=== PATIENT | female | born 1990 | race African-American/Black ===

== ENCOUNTER 2016-06-24 18:12 | Emergency (ER) | payer OTHER ==
[2016-06-24 18:17] VITALS: BP 113/67; PULSE 86; TEMP 98.5; BMI 24.6
== END 2016-06-24 20:04 | disposition left against medical advice (07) ==
LOC: JER 18:12
DX: Z53.21 Procedure and treatment not carried out due to patient leaving prior to being seen by health care provider (principal)
CPT/HCPCS: 99281-25

== ENCOUNTER 2016-06-26 20:52 | Emergency (ER) | payer OTHER ==
[2016-06-26 21:07] VITALS: BP 107/56; PULSE 67; TEMP 98.1; BMI 24.6
--- NOTE | 2016-06-26 22:07 | PDOC ---
History of Present Illness - General History Source: Patient Exam Limitations: No Limitations - History of Present Illness Initial Comments: 06/26/16 22:22 The patient is a 26 year old female , 9 week , with past medical history of asthma and cigarette smoking who presents to the ED with complaints of vaginal itching and pain that began 3 days ago. 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 She reports that this is the second occurrence of symptoms within the past 5 weeks. She also reports some vaginal bleeding as well, that has been on and off for the past week and has become more red in color. She denies any recent illness, fevers, or chills. She denies any nausea, vomiting, diarrhea. She denies any other urinary symptoms. PCP: Kevin Cheema labeler: Dr. Kimmy Shen <Danielle Velez - Last Filed: 06/26/16 23:57> - General History Source: Patient Exam Limitations: No Limitations <Jf Pugh - Last Filed: 06/29/16 08:39> - General Chief Complaint: Vaginal Sxs Stated Complaint: 9WKS/VAGINAL BLEEDING/DISCOMFORT Time Seen by Provider: 06/26/16 21:18 Past History <Danielle Velez - Last Filed: 06/26/16 23:57> - Past Medical History Asthma: No Cancer: No Cardiac Disorders: Yes (MURMUR) Diabetes: No HTN: No Seizures: No Thyroid Disease: No Other medical history: HERPES 2 - Reproductive History (#): 2 Para: 1 - Immunization History Immunization Up to Date: Yes - Psycho/Social/Smoking Cessation Hx Anxiety: No Suicidal Ideation: No Smoking Status: Yes Smoking History: Current every day smoker Have you smoked in the past 12 months: Yes Number of Cigarettes Smoked Daily: 7 Cigars Per Day: 0 Information on smoking cessation initiated: No 'Breaking Loose' booklet given: 06/24/16 Hx Alcohol Use: No Drug/Substance Use Hx: No Substance Use Type: None Hx Substance Use Treatment: No <Jf Pugh - Last Filed: 06/29/16 08:39> - Past Medical History Allergies/Adverse Reactions: Allergies Allergy/AdvReac Type Severity Reaction Status Date / Time No Known Allergies Allergy Verified 06/26/16 21:01 Home Medications: Ambulatory Orders Pnv95/Ferrous Fumarate/FA [ Caplet] 1 each PO DAILY 06/26/16 Cephalexin [Keflex] 500 mg PO BID #14 capsule 06/27/16 Clotrimazole [Clotrimazole-7] 45 gm VG DAILY #1 cream.appl 06/27/16 Review of Systems - Review of Systems Able to Perform ROS?: Yes Comments:: 06/26/16 22:23 GENERAL/CONSTITUTIONAL: No fever or chills. No weakness. HEAD, EYES, EARS, NOSE AND THROAT: No change in vision. No ear pain or discharge. No sore throat CARDIOVASCULAR: No chest pain or shortness of breath. RESPIRATORY: No cough, wheezing, or hemoptysis. GASTROINTESTINAL: No nausea, vomiting, diarrhea or constipation. GENITOURINARY: Present: vaginal itching, vaginal pain, vaginal bleeding No dysuria, frequency, or change in urination. MUSCULOSKELETAL: No joint or muscle swelling or pain. No neck or back pain. SKIN: No rash NEUROLOGIC: No headache, vertigo, loss of consciousness, or change in strength/ sensation. ENDOCRINE: No increased thirst. No abnormal weight change. HEMATOLOGIC/LYMPHATIC: No anemia, easy bleeding, or history of blood clots. ALLERGIC/IMMUNOLOGIC: No hives or skin allergy. All Other Systems: Reviewed and Negative <Danielle Velez - Last Filed: 06/26/16 23:57> *Physical Exam - Vital Signs Last Vital Signs Temp Pulse Resp BP Pulse Ox 98.1 F 67 14 107/56 100 06/26/16 21:02 06/26/16 21:02 06/26/16 21:02 06/26/16 21:02 06/26/16 21:02 - Physical Exam Comments: 06/26/16 22:23 GENERAL: Awake, alert, and fully oriented, in no acute distress HEAD: No signs of trauma EYES: PERRLA, EOMI, sclera anicteric, conjunctiva clear ENT: Auricles normal inspection, hearing grossly normal, nares patent, oropharynx clear without exudates. Moist mucosa NECK: Normal ROM, supple, no lymphadenopathy, JVD, or masses LUNGS: Breath sounds equal, clear to auscultation bilaterally. No wheezes, and no crackles HEART: Regular rate and rhythm, normal S1 and S2, no murmurs, rubs or gallops ABDOMEN: Soft, nontender, normoactive bowel sounds. No guarding, no rebound. No masses PELVIC EXAM: No CMT, andnexal tenderness, no blood in vaginal vault, Cottage cheese discharge, Oss is closed EXTREMITIES: Normal range of motion, no edema. No clubbing or cyanosis. No cords, erythema, or tenderness NEUROLOGICAL: Cranial nerves II through XII grossly intact. Normal speech, normal gait <Danielle Velez - Last Filed: 06/26/16 23:57> - Vital Signs Last Vital Signs Temp Pulse Resp BP Pulse Ox 98.1 F 67 14 107/56 100 06/26/16 21:02 06/26/16 21:02 06/26/16 21:02 06/26/16 21:02 06/26/16 21:02 - Physical Exam Comments: 06/29/16 08:38 Vaginal Exam: no rash or vesicular lesion. <Jf Pugh - Last Filed: 06/29/16 08:39> ED Treatment Course - LABORATORY CBC & Chemistry Diagram: 06/26/16 22:00 - RADIOLOGY Radiograph Interpretation: 06/26/16 23:57 Transvaginal ultrasound as reviewed by Dr. Kearney reports single viable gestation at approximately 6 weeks and 3 days. No definite sonographic abnormality identified. <jeetDanielle - Last Filed: 06/26/16 23:57> - LABORATORY CBC & Chemistry Diagram: 06/26/16 22:00 - RADIOLOGY Radiology Studies Ordered: Category Date Time Status TRANSVAGINAL US PREG [US] Stat Ultrasound 06/26/16 21:46 Ordered <Jf Pugh - Last Filed: 06/29/16 08:39> Medical Decision Making - Medical Decision Making 06/26/16 22:06 A portion of this note was documented by scribe services under my direction. I have reviewed the details of the note, within reason, and agree with the documentation with the following case summary and management plan written by me. Patient treated in the ED. Nursing notes are reviewed and incorporated into the medical decision-making. Vital signs reviewed. Peripheral IV access obtained by the nurse, laboratory studies are drawn and sent, reviewed and interpreted by myself. Vital Signs Temp Pulse Resp BP Pulse Ox 98.1 F 67 14 107/56 100 06/26/16 21:02 06/26/16 21:02 06/26/16 21:02 06/26/16 21:02 06/26/16 21:02 26-year-old female with past medical history of herpes, currently 9 weeks presents with vaginal spotting for 5 days and for 2 days of vaginal yeast discharge. Patient has had noticed some spotting but denies any abdominal pain. Denies nausea or vomiting. Had noted whitish cottage discharge. She has multiple history of vaginal yeast infections. The patient will certainly has a yeast infection. We'll prescribe topical antifungals intravaginally. We'll also need a first trimester vaginal workup including rule out ectopic . We'll obtain labs, blood type, and transvaginal ultrasound and reassess. 06/27/16 00:04 CBC, BMP 06/26/16 22:00 CMP Beta HCG, Quant 17702.3 mIU/ml 06/26/16 22:00 Prior type and screen show blood type as A positive. Ultrasound reviewed. Single viable intrauterine gestation at approx 6 weeks and 3 days. FHR 121. UA positive for infection. At this time, the patient is stable. The patient has not been having further bleeding. I instructed the patient that she will need clotrimazole topically for 7 days as well as keflex. Will have the patient follow up with her senior financial reporting analyst. I discussed the physical exam findings, ancillary test results and final diagnoses with the patient. I answered all of the patient's questions. The patient was satisfied with the care received and felt comfortable with the discharge plan and treatment plan. The patient will call their primary care physician within 24 hours to arrange follow-up and will return to the Emergency Department with any new, persistant or worsening symptoms. <Jf Pugh - Last Filed: 06/29/16 08:39> *DC/Admit/Observation/Transfer - Attestations Scribe Attestion: 06/26/16 22:28 Documentation prepared by Danielle Velez, acting as medical director of hospice for Jf Pugh MD. <Danielle Velez - Last Filed: 06/26/16 23:57> - Discharge Dispostion Admit: No <Jf Pugh - Last Filed: 06/29/16 08:39> Diagnosis at time of Disposition: Vaginal discharge, Vaginal yeast infection, Vaginal bleeding before 22 weeks gestation Urinary tract infection Qualifiers: Urinary tract infection type: site unspecified Hematuria presence: without hematuria Qualified Code(s): N39.0 - Urinary tract infection, site not specified - Discharge Dispostion Disposition: HOME Condition at time of disposition: Stable - Prescriptions Prescriptions: Clotrimazole [Clotrimazole-7] 45 gm VG DAILY #1 cream.appl Cephalexin [Keflex] 500 mg PO BID #14 capsule - Referrals Referrals: Kevin Cheema [Primary Care Provider] - - Patient Instructions Printed Discharge Instructions: DI for Urinary Tract Infection (UTI), DI for Vaginal Yeast Infection, DI for Vaginal Bleeding During Additional Instructions: Your ultrasound and blood work is unremarkable. However, you have a urinary tract infection and a yeast infection. Please take the antifungal cream daily for 7 days. Please take the keflx (antibiotic) every 12 hours for the next 7 days for a urine infection. If you start to notice worsening vaginal bleed, please return to the ER for further evaluation. Follow up with your primary care physician.
[2016-06-26 22:23] LABS: BASOPHIL 0.7 % (0-2.0); EOSINOPHIL 0.8 % (0-4.5); MCH 32.7 pg (25.7-33.7); MCHC 33.7 g/dl (32.0-36.0); MEAN CELL VOLUME 97.2 fl (80-96); MEAN PLT VOLUME 7.9 fl (7.5-11.1); NEUTROPHILS 45.6 % (42.8-82.8); PLATELET COUNT 207 K/MM3 (134-434); RDW 12.6 % (11.6-15.6); WHITE BLOOD COUNT 5.4 K/mm3 (4.0-10.0)
[2016-06-26 22:35] LABS: URINE APPEARANCE CLOUDY; URINE BILIRUBIN NEGATIVE (NEGATIVE); URINE COLOR YELLOW; URINE GLUCOSE (UA) NEGATIVE (NEGATIVE); URINE KETONE NEGATIVE (NEGATIVE); URINE NITRITE NEGATIVE (NEGATIVE); URINE UROBILINOGEN NEGATIVE E.U./dl (0.2-1.0)
[2016-06-26 22:41] LABS: URINE BLOOD 1+ (NEGATIVE); URINE LEUK ESTERASE 3+ (NEGATIVE); URINE PROTEIN 2+ (NEGATIVE)
[2016-06-26 22:55] LABS: URINE BACTERIA RARE /hpf (NONE SEEN); URINE MUCUS FEW; URINE RBC 38 /hpf (0-3); URINE WBC 69 /hpf (3-5)
[2016-06-26] MEDS ORDERED: CEPHALEXIN MONOHYDRATE 500 MG CAPSULE (UD) PO ONE (23:59)
[2016-06-27] MEDS ORDERED: CEPHALEXIN MONOHYDRATE 250 MG CAPSULE (FP) ONE (00:04)
[2016-06-28 14:07] LABS: HIV 1 & 2 AB NEGATIVE; HIV 1 AGp24 NEGATIVE
== END 2016-06-27 00:12 | disposition home or self-care (01) ==
LOC: JER 20:52
DX: O23.31 Infections of other parts of urinary tract in pregnancy, first trimester (principal); O98.811 Other maternal infectious and parasitic diseases complicating pregnancy, first trimester; B37.3 Candidiasis of vulva and vagina; O46.91 Antepartum hemorrhage, unspecified, first trimester; Z3A.01 Less than 8 weeks gestation of pregnancy
CPT/HCPCS: 36415; 76817-TC; 81003; 81015; 84702; 85025; 86850; 86900; 86901; 87086; 87389; 87491; 87591; 99283-25

== ENCOUNTER 2017-01-27 19:40 | Inpatient (IN) | payer OTHER ==
[2017-01-27] MEDS ORDERED: WITCH HAZEL 50% (TUCKS) 40 PAD/JAR PAD TP PRN (20:05)
[2017-01-27] MEDS ORDERED: BISACODYL 10 MG SUPP.RECT RC PRN (20:05)
[2017-01-27] MEDS ORDERED: METHYLERGONOVINE MALEATE 0.2 MG/1 ML AMP IM PRN (20:05)
[2017-01-27] MEDS ORDERED: BENZOCAINE 20% 57 GM BOTTLE TP PRN (20:05)
[2017-01-27] MEDS ORDERED: BENZOCAINE 28 GM HEMORRHOIDAL OINTMENT TP PRN (20:05)
--- NOTE | 2017-01-27 20:11 | PN ---
Delivery - Delivery Vaginal Delivery: No Problems Type of Anesthesia: None Episiotomy/Laceration: None EBL (cc): 300 Delivery, Single - Stages of Labor Date of Delivery: 01/27/17 Time of Delivery: 19:51 Date Placenta Delivered: 01/27/17 Time Placenta Delivered: 19:55 Placenta: Yes: Spontaneous - Condition of Mission Assessment Specialist/Utility Bag Assembler Present: No Gender: Female Position: Right, OA - 1 Minute Total Score: 9 5 Minutes Total Score: 9 Remarks - Remarks Remarks: Uncomplicated of baby girl from ROBBY position across intact perineum tight nuchal cord noted, baby spontaneously delivered through cord which was then clamped and cut anterior shoulder (left) delivered with ease along with remainder of mouth and nose bulb suctioned Apgars 9/9 no perineal/vaginal laceration noted sponge count correct after delivery 10u of IM Pitocin injected into right thigh after delivery lochia moderate and stable mom stable baby to well baby nursery
[2017-01-27] MEDS ORDERED: OXYTOCIN 20 UNITS in 0.9% NS 1,000 ML IV SCH (20:15)
--- NOTE | 2017-01-27 20:16 | HP ---
Past Medical History - Admission Chief Complaint: 26 y/o with SIUP at 37.3 here with complaints of painful contractions and vaginal pressure. History of Present Illness: complicated by elevated T21 risk on NIPS, cystic hygroma noted on early ultrasounds. Pt declined diagnostic testing/amnio. H/o HSV 2- has been on valtrex suppression. +Trichomonas on 3rd trimester vaginal cultures, treated orally and partner treated as well. Mom with anemia. History Source: Patient, Medical Record Limitations to Obtaining History: No Limitations - Past Medical History Cardiovascular: No: HTN Pulmonary: No: Asthma, COPD Gastrointestinal: No: GERD ...: 4 ...Para: 2 ...Term: 2 ... Weeks Gestation by Dates: 37.3 Heme/Onc: Yes: Anemia Infectious Disease: Yes: STD's (+Trichomonas diagnosed at 35 weeks - patient and partner treated). No: HIV, MRSA Psych: Yes: Bipolar (no meds) Endocrine: No: Diabetes Mellitus, Hyperthyroidism - Past Surgical History Hx Myomectomy: No Hx Transabdominal Cerclage: No - Smoking History Smoking history: Current every day smoker Have you smoked in the past 12 months: Yes Aproximately how many cigarettes per day: 7 - Alcohol/Substance Use Hx Alcohol Use: No Home Medications - Allergies Allergies/Adverse Reactions: Allergies Allergy/AdvReac Type Severity Reaction Status Date / Time No Known Allergies Allergy Verified 06/26/16 21:01 - Home Medications Home Medications: Ambulatory Orders Pnv95/Iron Fum/Folic Acid [ Caplet] 1 each PO DAILY 06/26/16 Cephalexin [Keflex] 500 mg PO BID #14 capsule 06/27/16 Clotrimazole [Clotrimazole-7] 45 gm VG DAILY #1 cream.appl 06/27/16 Review of Systems - Review of Systems Constitutional: reports: No Symptoms Eyes: reports: No Symptoms HENT: reports: No Symptoms Neck: reports: No Symptoms Cardiovascular: reports: No Symptoms Respiratory: reports: No Symptoms Gastrointestinal: reports: No Symptoms Genitourinary: reports: No Symptoms Breasts: reports: No Symptoms Reported Musculoskeletal: reports: No Symptoms Integumentary: reports: No Symptoms Neurological: reports: No Symptoms Endocrine: reports: No Symptoms Hematology/Lymphatic: reports: No Symptoms Psychiatric: reports: No Symptoms Physical Exam - Maternity Constitutional: Yes: Well Nourished, No Distress, Calm Eyes: Yes: EOM Intact Cardiovascular: No: Regular Rate and Rhythm - Abdominal Exam/OB Number of Fetuses: Single Presentation: Vertex Contractions: Yes Regularity: Regular Intensity: Strong - Vaginal Exam/OB Vaginal Bleediing: No Dilatation (cm): 10 Effacement (%): 100 Amniotic Membrane Status: Bulging Presentation: Vertex/Position Station: +1 - Physical Exam Psychiatric: Yes: Alert, Oriented Hemorrhage Risk Assessment - Risk Factors Medium Risk Factors: Yes: None High Risk Factors: Yes: None Risk Score: 1 Risk Level: Medium Risk Problem List - Problems (1) Active labor at term Code(s): [id number] - (2) Herpes simplex infection during in third trimester Code(s): O98.513 - OTHER VIRAL DISEASES COMPLICATING , THIRD TRIMESTER B00.9 - HERPESVIRAL INFECTION, UNSPECIFIED Assessment/Plan 26 y/o with SIUP at 37.3 weeks, in active labor, fully dilated - FHTs cat 1 - fully dilated with desire to push - to begin pushing - GBS negative - h/o HSV 2- on suppression - no current lesions noted on exam - anticipate
[2017-01-27 21:01] LABS: BASOPHIL 0.2 % (0-2.0); EOSINOPHIL 0.1 % (0-4.5); MCH 33.3 pg (25.7-33.7); MCHC 33.8 g/dl (32.0-36.0); MEAN CELL VOLUME 98.7 fl (80-96); MEAN PLT VOLUME 9.4 fl (7.5-11.1); NEUTROPHILS 82.2 % (42.8-82.8); PLATELET COUNT 182 K/MM3 (134-434); RDW 13.3 % (11.6-15.6); WHITE BLOOD COUNT 7.1 K/mm3 (4.0-10.0)
[2017-01-27 21:23] LABS: INR 1.09 (0.82-1.09)
[2017-01-27 21:27] LABS: ACTIVATED PTT 26.7 SECONDS (26.9-34.4); ANION GAP 11 (8-16); CALCIUM 9.2 mg/dL (8.5-10.1); CO2 23 mmol/L (21-32); CREATININE 0.7 mg/dL (0.55-1.02); GLUCOSE,RANDOM 84 mg/dL (74-106)
[2017-01-27 21:31] VITALS: BMI 29.0
[2017-01-27] MEDS ORDERED: OXYTOCIN 10 UNITS/ML VIAL IM ONE (22:07)
[2017-01-28] MEDS: ACETAMINOPHEN 325 MG TABLET (FP) PO PRN ×4 (00:02→21:39)
[2017-01-28] MEDS: IBUPROFEN 600 MG TABLET (FP) PO PRN ×4 (00:02→21:39)
--- NOTE | 2017-01-28 07:42 | PN ---
Post Progress Note - Subjective Subjective: Pt feeling well, no complaints. Denies any pain. Bleeding minimal. Denies CP /SOB/F/C/CROOK. Tolerating regular diet, voiding, ambulating. Type of Delivery: Vital Signs: Vital Signs Temperature 98.4 F 01/28/17 05:38 Pulse Rate 64 01/28/17 05:38 Respiratory Rate 20 01/28/17 05:38 Blood Pressure 124/84 01/28/17 05:38 O2 Sat by Pulse Oximetry (%) Uterus: Yes: Fundus Firm, Fundus below umbilicus Abdomen/GI: Yes: Abdomen soft, Passing flatus, Tolerating PO. No: Tender Lochia: Yes: Rubra Lochia, amount: Small Extremities: Yes: Calves non-tender. No: Edema Perineum: Yes: Intact Activity: Ambulating - Labs Labs: CBC WBC 7.1 K/mm3 (4.0-10.0) D 01/27/17 20:40 RBC 3.31 M/mm3 (3.60-5.2) L 01/27/17 20:40 Hgb 11.0 GM/dL (10.7-15.3) 01/27/17 20:40 Hct 32.7 % (32.4-45.2) 01/27/17 20:40 MCV 98.7 fl (80-96) H 01/27/17 20:40 MCH 33.3 pg (25.7-33.7) 01/27/17 20:40 MCHC 33.8 g/dl (32.0-36.0) 01/27/17 20:40 RDW 13.3 % (11.6-15.6) 01/27/17 20:40 Plt Count 182 K/MM3 (134-434) 01/27/17 20:40 MPV 9.4 fl (7.5-11.1) D 01/27/17 20:40 Neutrophils % 82.2 % (42.8-82.8) D 01/27/17 20:40 Lymphocytes % 11.4 % (8-40) D 01/27/17 20:40 Monocytes % 6.1 % (3.8-10.2) 01/27/17 20:40 Eosinophils % 0.1 % (0-4.5) D 01/27/17 20:40 Basophils % 0.2 % (0-2.0) 01/27/17 20:40 Problem List - Problems (1) Active labor at term Code(s): MMA9822 - (2) Herpes simplex infection during in third trimester Code(s): O98.513 - OTHER VIRAL DISEASES COMPLICATING , THIRD TRIMESTER B00.9 - HERPESVIRAL INFECTION, UNSPECIFIED (3) Status post normal vaginal delivery Code(s): RDT4226 - (4) (normal spontaneous vaginal delivery) Code(s): O80 - ENCOUNTER FOR FULL-TERM UNCOMPLICATED DELIVERY Assessment/Plan 26 y/o PPD#1 s/p normal - AFVSS - CBC Pending this a.m. - regular diet, PO pain meds, routine care - h/o bipolar d/o - will have psych consult before discharge
[2017-01-28 08:40] LABS: BASOPHIL 0.2 % (0-2.0); EOSINOPHIL 0.3 % (0-4.5); MCH 32.9 pg (25.7-33.7); MCHC 33.8 g/dl (32.0-36.0); MEAN CELL VOLUME 97.4 fl (80-96); MEAN PLT VOLUME 8.9 fl (7.5-11.1); NEUTROPHILS 73.7 % (42.8-82.8); PLATELET COUNT 176 K/MM3 (134-434); WHITE BLOOD COUNT 9.3 K/mm3 (4.0-10.0)
[2017-01-28] MEDS: PRENATAL VITAMINS W/ FOLIC ACID TABLET (FP) PO SCH (09:36)
[2017-01-28 20:12] VITALS: BP 125/76
[2017-01-28] MEDS ORDERED: SENNOSIDES/DOCUSATE COMBO (SENNA PLUS) TABLET (UD) PO PRN (22:00)
--- NOTE | 2017-01-29 08:36 | DS ---
Physical Exam-HOME CARE COORDINATOR Vital Signs: Vital Signs Temperature 98.0 F 01/28/17 20:12 Pulse Rate 64 01/28/17 20:12 Respiratory Rate 20 01/28/17 20:12 Blood Pressure 125/76 01/28/17 20:12 O2 Sat by Pulse Oximetry (%) Labs: CBC, BMP 01/28/17 07:30 01/27/17 20:40 Delivery - Delivery Vaginal Delivery: No Problems Type of Anesthesia: None Episiotomy/Laceration: None EBL (cc): 300 Delivery, Single - Stages of Labor Date 1st Stage Initiatied: 01/27/17 Time 1st Stage Initiated: 18:30 Date 2nd Stage Initiated: 01/27/17 Time 2nd Stage Initiated: 19:49 Date of Delivery: 01/27/17 Time of Delivery: 19:51 Time Placenta Delivered: 19:55 Placenta: Yes: Spontaneous - Condition of Infant Teaseler/Health Care Assistant Present: No Infant Gender: Female Weight: 5 lb 9 oz Position: Right, OA Total Hours ROM (Hrs/Mins): 7m - 1 Minute Total Score: 9 5 Minutes Total Score: 9 - [place] Feeding Plan Initial Plan: Elected not to breastfeed exclusively throughout hospitalization Discharge Summary Reason For Visit: LABOR Current Active Problems Active labor at term (Acute) Herpes simplex infection during in third trimester (Acute) (normal spontaneous vaginal delivery) (Acute) Status post normal vaginal delivery (Acute) Procedures: Principal: Normal Hospital Course: Uncomplicated post course. Condition: Good - Instructions Diet, Activity, Other Instructions: Physical activity Resume your normal everyday activity as tolerated but no heavy lifting or strenuous exercise until seen by your doctor. You may walk unlimited amounts and climb stairs. You may resume driving the car when you feel safe and comfortable behind the wheel. No sexual activity as instructed for 6 weeks. You may shower daily - no soaking in tubs/baths/pools until cleared by your doctor. Diet There are no dietary restrictions. Eat healthy, high-fiber foods. Drink 6 to 8 glasses of liquid each day. This will assist in keeping your bowels regular. Pain management You may take Tylenol or Ibuprofen (for example, Motrin, Advil etc.) over the counter as needed for pain. Make a follow up appointment in the office for 6 weeks from discharge. Call for any of the following: Severe pain not relieved by medication Fever of 101 or higher Excessive bleeding or drainage on dressing Inability to urinate Referrals: Joann Ascencio DO [Staff Physician] - (6 weeks) Disposition: HOME - Home Medications Comprehensive Discharge Medication List: Ambulatory Orders Pnv95/Iron Fum/Folic Acid [ Caplet] 1 each PO DAILY 06/26/16 Acyclovir [Zovirax] 200 mg PO TID 01/27/17
[2017-01-29 09:00] VITALS: PULSE 72; TEMP 99.1
[2017-01-29] MEDS: ACETAMINOPHEN 325 MG TABLET (FP) PO PRN (09:50)
[2017-01-29] MEDS: PRENATAL VITAMINS W/ FOLIC ACID TABLET (FP) PO SCH (09:50)
[2017-01-29] MEDS: IBUPROFEN 600 MG TABLET (FP) PO PRN (09:50)
--- NOTE | 2017-01-29 12:24 | CON.PSY ---
Psychiatry Consult Chief Complaint: Asked to see this patient, a 26 year old female with hx of bipolar depression History of Present Problem: Patient is 26 year old and is here after a normal vaginal delivery of girl. She has a hx of psychiatrist hospitalization when she was 24 year old after a break up with her then boyfriend. According to her, she became very depressed and was admitted for Depression. Length of stay was 6 days and she was placed on Celexa and abilfy. She states that she took these medications x 1 weeks and stopped. After that she went on the have another baby without any mental health issues post , This is her 3 child. Since the hospitalization at 24 year of age, she reports that she has been mentally stable and has not sought psychiatric care. Symptoms: denies: Depressed Mood, Anhedonia, Worthlessness/Guilt, Decreased Energy, Suicidality, Self destructive thoughts, Appetite Disturbance, Weight change, Hopelessness, Sleep Disturbance, Diurnal Mood Changes, Impaired Concentration, Decreased Motivation, Memory Impairment, Irritability, Expansive / Elevated Mood, Grandiosity, Hyper-religiosity, Excessive Energy, Racing Thoughts, Anxiety, Panic Attacks, Obsessive Thoughts, Flashbacks, Compulsive Behaviors, Agoraphobia, Restlessness, Phobias, Bulimic Behavior, Anorexic Behavior, Somatic Symptoms, Sexual Dysfunction, Inability to Control Temper, Aggressivity, Impulsivity, Depersonalization, Derealization, Amnesic Episodes, Disorganized/Disruptive Thoughts, Delusions, Hallucinations, Paranoia, Conduct Problems, Oppositionalism, Attention Deficit, Learning Problems, Firesetting, Enuresis, Lying, Hyperactivity, Other - Previous Psychiatric Treatment Outpatient: None Inpatient: None - Previous Substance Abuse Treatment Inpatient: None - Current Medications Current Medications: Active Medications Acetaminophen (Tylenol -) 650 mg PO Q3H PRN PRN Reason: PAIN Last Admin: 01/29/17 09:50 Dose: 650 mg Benzocaine (Americaine Ointment -) 1 applic TP PRN PRN PRN Reason: PAIN Benzocaine (Americaine 20% [place] -) 1 spray TP PRN PRN PRN Reason: PAIN Bisacodyl (Dulcolax Suppository -) 10 mg RC PRN PRN PRN Reason: CONSTIPATION Ibuprofen (Motrin -) 600 mg PO Q4H PRN PRN Reason: PAIN Last Admin: 01/29/17 09:50 Dose: 600 mg Methylergonovine Maleate (Methergine Injection -) 0.2 mg IM Q4H PRN PRN Reason: EXCESSIVE BLEEDING (L&D) Multivit/Folic Acid/Iron ( Vitamins (Sjr) -) 1 tab PO DAILY GRACIELA Last Admin: 01/29/17 09:50 Dose: 1 tab Senna/Docusate Sodium (Pericolace -) 2 tablet PO HS PRN PRN Reason: CONSTIPATION Last Admin: 01/28/17 21:39 Dose: 2 tablet Witch Lyly/Glycerin (Tucks Pads -) 1 pad TP PRN PRN PRN Reason: PAIN - Allergies Allergies: Allergies Allergy/AdvReac Type Severity Reaction Status Date / Time No Known Allergies Allergy Verified 01/27/17 21:14 - Current Living Status Usual Living Arrangement: Alone - Current Mental Status Evaluation Appearance: Well Groomed Attitude: Cooperative - Affect Affect: Full Range Appropriateness: Appropriate to Content - Mood Mood: Euthymic - Speech/Language Expressive: Coherent - Psychomotor Activity Psychomotor Activity: Normal - Thought Content Hallucinations: Absent Delusions: Absent - Self Perception Self Perception: No Impairment - Cognition Attention: Alert Orientation: Time, Person, Place Memory, Immediate Recall: Intact Memory, Short Term: 3/3 - Concentration Simple Calculations Intact: Yes - Abstraction Proverb Interpretation: Intact Judgement: Intact - Insight Insight: Intact - Impulse Control Impulse Control: Good Control - Suicidal Ideation Suicidal Ideation: No - Homicidal Ideation Homicidal Ideation: No Assessment/Plan Patient was informed of bipolar depression and post depression and post psychosis She was advised to discuss with her RESIDENTIAL SUPERVISOR doctor and also informed of signs and symptoms. Her boyfriend, who was present also was given informations Patient is not showing any signs of depression at this time
== END 2017-01-29 14:50 | disposition home or self-care (01) | DRG 560 ==
LOC: JLDR 19:40 → J3W 22:00
PROVIDERS: ADMIT Obstetrics & Gynecology; ATTEND Obstetrics & Gynecology
PROC: 10E0XZZ Delivery of Products of Conception, External Approach (ICD-10-PCS; principal; 2017-01-27)
DX: O98.513 Other viral diseases complicating pregnancy, third trimester (principal); B00.9 Herpesviral infection, unspecified; Z3A.37 37 weeks gestation of pregnancy; Z37.0 Single live birth
CPT/HCPCS: 36415; 59409; 71020-TC; 80048; 85025; 85610; 85730; 86593; 86850; 86900; 86901